=== PATIENT | male | born 1945 | race African-American/Black ===

== ENCOUNTER 2018-03-11 15:15 | Observation (INO) ==
[2018-03-11 16:24] LABS: Basophils % 0.6 % (0.0-0.8); Eosinophils # 0.1 10*3/uL (0.0-0.87); Eosinophils % 1.2 % (0.00-10.9); Hematocrit 33.7 VOL% (42.0-52.0); Hemoglobin 10.7 GM/DL (14.0-18.0); Immature Granulocytes % 0.4 %; Immature Granulocytes Absolute 0.03 #; Lymphocytes # 0.9 10*3/uL (1.4-4.0); Lymphocytes % 12.7 % (21.2-54.2); Mean Corpuscular HGB Conc 31.8 GM/DL (32-36); Mean Corpuscular Hemoglobin 27 PG (27-34); Mean Corpuscular Volume 84.5 FL (87-102); Mean Platelet Volume 12.7 FL (9.6-12.0); Monocytes # 0.4 10*3/uL (0.11-0.8); Monocytes % 5.5 % (1.7-12.7); Neutrophils # 5.8 10*3/uL (1.4-7.4); Neutrophils % 79.6 % (38.7-73.9); Platelet Count 210 T/CUMM (130-400); Red Blood Count 3.99 MC/CUMM (3.8-5.5); Red Cell Distribution Width 16.2 % (9.3-17.3); White Blood Count 7.3 T/CUMM (4-12)
[2018-03-11 16:33] LABS: Albumin 4.2 G/DL (3.4-5.0); Bilirubin,Total 0.9 MG/DL (0.2-1.0); Calcium 9.1 MG/DL (8.5-10.1); Potassium 3.7 MMOL/L (3.5-5.1)
[2018-03-11 17:17] LABS: Apearance,Urine CLEAR (Clear); Bilirubin,Urine Negative (Negative); Blood, Urine Negative (Negative); Glucose,Urine (UA) Negative (Negative); Hyaline Casts,Urine 1 /LPF (0-3); Ketones,Urine Negative (Negative); Mucus,Urine Occasional /LPF (Occasional); Nitrite,Urine Negative (Negative); Protein,Urine Negative; RBC,Urine <1 /HPF (0-4); Urine Color Straw (Yellow); Urine Specific Gravity 1.005 (1.001-1.035); Urine Urobilinogen < 2.0 EU/DL (0.2-1.0); WBC,Urine 1 /HPF (0-6)
[2018-03-11] MEDS ORDERED: INFLUENZA VIRUS VACCINE 0.5 ML SYRINGE IM ONE (19:40)
[2018-03-11] MEDS ORDERED: ENOXAPARIN 40 MG/0.4 ML SYRINGE SUBCUT SCH (21:00)
[2018-03-11] MEDS ORDERED: PRAVASTATIN 40 MG TABLET PO SCH (21:00)
[2018-03-11] MEDS ORDERED: TAMSULOSIN 0.4 MG CAPSULE PO SCH (21:00)
[2018-03-11] MEDS: CARVEDILOL 25 MG TABLET PO SCH (21:35)
[2018-03-12 06:20] LABS: Albumin 3.3 G/DL (3.4-5.0); Bilirubin,Total 0.9 MG/DL (0.2-1.0); Calcium 8.2 MG/DL (8.5-10.1); Osmolality,Calculated 291.7 MOS/KG (273-304); Potassium 3.3 MMOL/L (3.5-5.1); Risk Ratio 3.77; Total Protein 6.9 G/DL (6.4-8.3); VLDL CHOLESTEROL 22.4 MG/DL
[2018-03-12] MEDS ORDERED: LISINOPRIL 20 MG TABLET PO SCH (09:00)
[2018-03-12] MEDS ORDERED: FUROSEMIDE 40 MG TABLET PO SCH (09:00)
[2018-03-12] MEDS ORDERED: amLODIPine 10 MG TABLET PO SCH (09:00)
[2018-03-12] MEDS ORDERED: DUTASTERIDE 0.5 MG CAPSULE PO SCH (09:00)
[2018-03-12] MEDS ORDERED: ASPIRIN EC 81 MG TABLET PO SCH (09:00)
[2018-03-12] MEDS ORDERED: SPIRONOLACTONE 25 MG TABLET PO SCH (09:00)
[2018-03-12] MEDS ORDERED: MINOXIDIL 10 MG TABLET PO SCH ×2 (09:00→12:36)
[2018-03-12] MEDS: CARVEDILOL 25 MG TABLET PO SCH (10:36)
[2018-03-12 13:05] VITALS: BP 120/70
[2018-03-13] MEDS ORDERED: MINOXIDIL 10 MG TABLET PO SCH (09:00)
== END 2018-03-12 15:45 | disposition home or self-care (01) ==
LOC: N.EDINP 15:15 → N.ED 15:15 → N.TELENOUT 17:24 → N.TELES 17:24 → N.TELENOUT 18:15 → N.TELES 18:49
PROVIDERS: ADMIT Internal Medicine Nephrology; ATTEND Internal Medicine Nephrology

== ENCOUNTER 2020-10-16 14:42 | Observation (INO) ==
[2020-10-16 17:04] LABS: Basophils % 0.9 % (0.0-0.8); Eosinophils # 0.1 10*3/uL (0.0-0.87); Eosinophils % 2.3 % (0.00-10.9); Hemoglobin 11.7 GM/DL (14.0-18.0); Immature Granulocytes % 0.2 %; Immature Granulocytes Absolute 0.01 #; Lymphocytes % 21.9 % (21.2-54.2); Mean Corpuscular HGB Conc 31.6 GM/DL (32-36); Mean Corpuscular Volume 83.3 FL (87-102); Monocytes % 9.9 % (1.7-12.7); Neutrophils % 64.8 % (38.7-73.9); Platelet Count 206 T/CUMM (130-400); Red Blood Count 4.44 MC/CUMM (3.8-5.5); Red Cell Distribution Width 15.9 % (9.3-17.3); White Blood Count 4.4 T/CUMM (4-12)
[2020-10-16 17:11] LABS: Bilirubin,Urine Negative (Negative); Blood, Urine Small mg/dL (Negative); Glucose,Urine (UA) Negative (Negative); Hyaline Casts,Urine 1 /LPF (0-3); Ketones,Urine Negative (Negative); Mucus,Urine Occasional /LPF (Occasional); Nitrite,Urine Negative (Negative); Protein,Urine Negative; RBC,Urine 2 /HPF (0-4); Urine Appearance CLEAR (Clear); Urine Color Yellow (Yellow); Urine Specific Gravity 1.009 (1.001-1.035); Urine Urobilinogen < 2.0 EU/DL (0.2-1.0)
[2020-10-16 17:23] LABS: Albumin 3.9 G/DL (3.4-5.0); Bilirubin,Total 0.7 MG/DL (0.2-1.0); Calcium 8.8 MG/DL (8.5-10.1); Osmolality,Calculated 284.3 MOS/KG (273-304); Potassium 4.1 MMOL/L (3.5-5.1); Thyroid Stimulating Hormone 1.15 uIU/ml (0.358-3.74); Total Protein 7.5 G/DL (6.4-8.2)
[2020-10-16] MEDS ORDERED: DEXTROSE 50% 25 GM/50 ML VIAL IV PRN (19:58)
[2020-10-16] MEDS ORDERED: GLUCAGON 1 MG VIAL IM PRN (19:58)
[2020-10-16] MEDS ORDERED: SILDENAFIL 20 MG TABLET PO PRN (20:02)
[2020-10-16] MEDS ORDERED: ENOXAPARIN 40 MG/0.4 ML SYRINGE SUBCUT SCH (20:30)
[2020-10-16] MEDS ORDERED: COLCHICINE 0.6 MG CAPSULE PO PRN (20:52)
[2020-10-16] MEDS ORDERED: SIMVASTATIN 20 MG TABLET PO SCH (21:00)
[2020-10-16] MEDS ORDERED: TAMSULOSIN 0.4 MG CAPSULE PO SCH (21:00)
[2020-10-16] MEDS ORDERED: DUTASTERIDE 0.5 MG CAPSULE PO SCH (21:00)
[2020-10-17 05:24] LABS: Basophils % 0.9 % (0.0-0.8); Eosinophils # 0.1 10*3/uL (0.0-0.87); Hematocrit 36.7 VOL% (42.0-52.0); Hemoglobin 11.8 GM/DL (14.0-18.0); Immature Granulocytes % 0.3 %; Immature Granulocytes Absolute 0.01 #; Lymphocytes % 29.6 % (21.2-54.2); Mean Corpuscular HGB Conc 32.2 GM/DL (32-36); Mean Corpuscular Volume 81.4 FL (87-102); Monocytes % 10.1 % (1.7-12.7); Neutrophils % 56.1 % (38.7-73.9); Platelet Count 202 T/CUMM (130-400); Red Blood Count 4.51 MC/CUMM (3.8-5.5); Red Cell Distribution Width 15.7 % (9.3-17.3); White Blood Count 3.4 T/CUMM (4-12)
[2020-10-17 05:46] LABS: Calcium 8.8 MG/DL (8.5-10.1); Osmolality,Calculated 285.1 MOS/KG (273-304); Potassium 3.4 MMOL/L (3.5-5.1); Risk Ratio 3.62; VLDL CHOLESTEROL 24.2 MG/DL
[2020-10-17] MEDS ORDERED: PANTOPRAZOLE 40 MG TABLET PO SCH (09:00)
[2020-10-17] MEDS ORDERED: ASPIRIN EC 81 MG TABLET PO SCH (09:00)
[2020-10-17] MEDS ORDERED: SPIRONOLACTONE 25 MG TABLET PO SCH (09:00)
[2020-10-17] MEDS ORDERED: FUROSEMIDE 40 MG TABLET PO SCH (09:00)
[2020-10-17] MEDS ORDERED: POTASSIUM CHLORIDE 20 MEQ TABLET PO ONE (09:30)
[2020-10-17 11:41] VITALS: BP 142/80
== END 2020-10-17 12:42 | disposition home or self-care (01) ==
LOC: N.EDINP 14:42 → N.ED 14:42 → N.EDINP 21:33 → N.TELEN 21:45
PROVIDERS: ADMIT Internal Medicine; ATTEND Internal Medicine